=== PATIENT | female | born 1970 | race African-American/Black ===

== ENCOUNTER → 2016-05-14 | Outpatient (CLI) | payer OTHER ==
[2015-02-12 08:40] VITALS: BP 122/91
[~2016-05-14] MED LIST: ACYC200C PO; CYCL5TAB PO; IBUP-1060 PO; PHEN100C PO; TRIA1TAB3 PO
--- NOTE | 2016-05-20 21:56 | EEG ---
DATE OF SERVICE: 05/15/2016 OBJECTIVE: This is a 45-year-old female. She has a history of seizure or seizure-like episodes. EEG was requested to evaluate the seizure activity. METHODS: Twenty electrodes were applied according to the international 10-20 electrode placement system. EKG monitoring, hyperventilation, intermittent photic stimulation, monopolar and bipolar montages are routinely utilized. The record was obtained on a digital system with video monitoring. This is a long-term video EEG study with a total video monitoring EEG recording time of 24 hours from 05/14/2016 to 05/15/2016. FINDINGS: 1. BACKGROUND: The patient was recorded in the awake, drowsy, and sleep states. The overall background amplitude is 10-20 microvolts. A posterior dominant rhythm of 8 Hz is observed. 2. ABNORMALITIES: No specific epileptiform discharge or electrographic seizure is seen. No focal or diffuse slowing. Obvious muscle artifact noted. 3. ACTIVATION: Hyperventilation was not performed because the patient did not perform the technique. Intermittent photic stimulation was performed with photic driving. Sleep deprivation protocol also applied. No specific epileptiform discharge or electrographic seizure induced by intermittent photic stimulation or sleep deprivation. IMPRESSION: This is a long-term video EEG study with a total video monitoring and EEG recording time of 24 hours from 05/14/2016 to 05/15/2016. This long- term video EEG study is within the normal limits for the study of the awake, drowsy and sleep states. No focal, lateralizing, specific epileptiform discharge, or electrographic seizure is seen. TORI NGUYEN MD DR: TAWANDA/shoaib JOB#: [id number] / [id number] ELOISE
== END | disposition home or self-care (01) ==
LOC: SLPLAB 06:47
PROVIDERS: ATTEND Psychiatry & Neurology Neurology
DX: R56.9 Unspecified convulsions (principal)
CPT/HCPCS: 95951

== ENCOUNTER 2016-06-09 19:23 | Emergency (ER) | payer OTHER ==
[~2016-06-09] VITALS: Ht 160 cm; Wt 58.5 kg
[2016-06-09 20:06] VITALS: BP 120/79
--- NOTE | 2016-06-09 20:12 | PHYS DOC ---
Past Medical History Past Medical History: CHF, Hypertension, Seizure Past Surgical History: Other Additional Past Surgical Histo: unknown Alcohol Use: None Drug Use: Marijuana Adult General Chief Complaint Chief Complaint: EYE PROBLEMS HPI HPI Patient is a 45 year old female with complaint of right eye irritation after getting lice shampoo in her right eye within the past hour. She also has a complaint of possible rodent bites. Review of Systems Review of Systems Constitutional: Denies fever or chills [] Eyes: Denies change in visual acuity, redness, or eye pain [] HENT: Denies nasal congestion or sore throat [] Respiratory: Denies cough or shortness of breath [] Cardiovascular: No additional information not addressed in HPI [] GI: Denies abdominal pain, nausea, vomiting, bloody stools or diarrhea [] : Denies dysuria or hematuria [] Musculoskeletal: Denies back pain or joint pain [] Integument: Denies rash or skin lesions [] Neurologic: Denies headache, focal weakness or sensory changes [] Endocrine: Denies polyuria or polydipsia [] Allergies Allergies Allergies Coded Allergies Type Severity Reaction Last Updated Verified vancomycin Allergy Intermediate 12/10/14 ITCHING/HIVES from dose in ED Yes I S O L A T I O N *CONTACT* Allergy Unknown 12/18/14 Yes Penicillins Adverse Reaction Severe SEE COMMENT 12/11/14 Yes Sulfa (Sulfonamide Antibiotics) Adverse Reaction Severe see comment 12/11/14 Yes Physical Exam Physical Exam Constitutional: Well developed, well nourished, no acute distress, non-toxic appearance. [] HENT: Normocephalic, atraumatic, bilateral external ears normal, oropharynx moist, no oral exudates, nose normal. [] Eyes: PERRLA, EOMI, conjunctiva normal, no discharge. [] Neck: Normal range of motion, no tenderness, supple, no stridor. [] Cardiovascular:Heart rate regular rhythm, no murmur [] Lungs & Thorax: Bilateral breath sounds clear to auscultation [] Abdomen: Bowel sounds normal, soft, no tenderness, no masses, no pulsatile masses. [] Skin: Warm, dry, no erythema, no rash. [] Back: No tenderness, no CVA tenderness. [] Extremities: No tenderness, no cyanosis, no clubbing, ROM intact, no edema. [] Neurologic: Alert and oriented X 3, normal motor function, normal sensory function, no focal deficits noted. [] Psychologic: Affect normal, judgement normal, mood normal. [] Current Patient Data Vital Signs Vital Signs Date Time Temp Pulse Resp B/P Pulse Ox O2 Delivery O2 Flow Rate FiO2 06/09/16 20:06 97.9 85 18 99 Room Air 97.9 EKG EKG [] Radiology/Procedures Radiology/Procedures [] Course & Med Decision Making Course & Med Decision Making Patient would not cooperate with the exam. I asked her several times to allow me to open her eye and take a look. Patient refused to do so. Patient became very frustrated got up and walked out under her own accord. Dragon Disclaimer Dragon Disclaimer This electronic medical record was generated, in whole or in part, using a voice recognition dictation system. Departure Departure Impression: Primary Impression: Eye irritation Additional Impression: History of elopement from health care facility Referrals: ÁNGEL GRIMALDO (PCP) Problem Qualifiers VIMAL MILLS Jun 09, 2016 20:12
== END 2016-06-09 20:14 | disposition home or self-care (01) ==
LOC: ER 19:23
DX: H57.8 Other specified disorders of eye and adnexa (principal); I11.0 Hypertensive heart disease with heart failure; F12.10 Cannabis abuse, uncomplicated; Z88.0 Allergy status to penicillin; Z88.2 Allergy status to sulfonamides; Z88.1 Allergy status to other antibiotic agents; Z91.041 Radiographic dye allergy status
CPT/HCPCS: 99281

== ENCOUNTER 2016-06-27 11:51 | Emergency (ER) | payer OTHER ==
[~2016-06-27] VITALS: Ht 154.9 cm; Wt 60.3 kg
[2016-06-27] MEDS ORDERED: DIPHENHYDRAMINE HCL 25 MG CAPSULE PO ONE (13:15)
[2016-06-27 13:33] LABS: CREATININE 0.9 mg/dL (0.6-1.0); GFR 82.7; POTASSIUM 3.3 mmol/L (3.5-5.1)
--- NOTE | 2016-06-27 14:06 | RAD ---
Left lower extremity venous duplex study 06/27/2016 Clinical History: Left ankle redness and swelling. Technique: Using a combination of real time ultrasound imaging and color-flow and pulse Doppler imaging techniques along with graded compression and augmentation, duplex evaluation of the deep venous system of the left lower extremity was performed. Multiple images were obtained. Findings: There is no sonographic evidence of deep venous thrombosis involving the visualized deep venous structures of the left lower extremity. Impression: Negative study.
[2016-06-27] MEDS ORDERED: POTASSIUM CHLORIDE 20 MEQ/15 ML ORAL LIQUID. PO ONE (14:30)
[2016-06-27] MEDS ORDERED: CLIN-44 PO (14:34)
--- NOTE | 2016-06-27 14:35 | PHYS DOC ---
Past Medical History Past Medical History: CHF, Hypertension, Seizure Past Surgical History: Other Additional Past Surgical Histo: unknown Alcohol Use: None Drug Use: Marijuana Adult General Chief Complaint Chief Complaint: HYPERTENSION HPI HPI Patient is a 45 year old female who presents with leg swelling. The patient reports bilateral left greater than right lower extremity swelling for 2 days. Reports that left leg feels warm & appears red. Also reports right hand swelling, pain, & numbness in thumb & index finger. Reports history of hypertension with elevated blood pressure despite medication compliance. Denies fevers/chills, chest pain, shortness of breath, headache, extremity numbness/weakness except in hand as above. Reports history of CHF, denies history of DVT/PE. Review of Systems Review of Systems Constitutional: Denies fever or chills HENT: Denies nasal congestion or sore throat Respiratory: Denies cough or shortness of breath Cardiovascular: Denies chest pain , reports edema GI: Denies abdominal pain, nausea, vomiting, bloody stools or diarrhea Musculoskeletal: Reports bilateral lower extremity edema & skin changes to LLE Integument: skin changes to LLE Neurologic: Denies headache, focal weakness or sensory changes Current Medications Current Medications Current Medications Medications (Trade) Dose Ordered Sig/Zeeshan Start Time Stop Time Status Last Admin Dose Admin Diphenhydramine HCl (Benadryl) 25 mg 1X ONCE 06/27/16 13:15 06/27/16 13:16 DC 06/27/16 13:23 25 MG Potassium Chloride (KCl Oral Soln) 40 meq 1X ONCE 06/27/16 14:30 06/27/16 14:31 DC 06/27/16 14:50 40 MEQ Allergies Allergies Allergies Coded Allergies Type Severity Reaction Last Updated Verified vancomycin Allergy Intermediate 12/10/14 ITCHING/HIVES from dose in ED Yes I S O L A T I O N *CONTACT* Allergy Unknown 12/18/14 Yes Penicillins Adverse Reaction Severe SEE COMMENT 12/11/14 Yes Sulfa (Sulfonamide Antibiotics) Adverse Reaction Severe see comment 12/11/14 Yes Physical Exam Physical Exam Constitutional: Well developed, well nourished, no acute distress, non-toxic appearance. HENT: Normocephalic, atraumatic, bilateral external ears normal, oropharynx moist, nose normal. Eyes: conjunctiva normal, no discharge. Neck: supple, no stridor. Cardiovascular: RRR, no murmurs, no edema. Lungs & Thorax: LCTAB, no wheezing, no respiratory distress. Abdomen: soft, nontender, nondistended. Skin: L calf mild erythema & warmth. Back: No tenderness. Extremities: bilateral lower extremities appear symmetric with no appreciable edema, though left calf somewhat warm & slightly erythematous as compared to RLE , distal pulses palpable bilaterally, there is calf tenderness on the left RUE diminished sensation to thumb & index finger, wrist & hand nontender, normal ROM at wrist, radial pulse 2+, radial/median/ulnar nerve motor function intact. Neurologic: Alert and oriented X 3, no focal deficits noted. Psychologic: Affect normal, judgement normal, mood normal. Current Patient Data Vital Signs Vital Signs Date Time Temp Pulse Resp B/P Pulse Ox O2 Delivery O2 Flow Rate FiO2 06/27/16 15:45 88 16 144/94 98 Room Air 06/27/16 12:37 97.9 97.9 Lab Values Laboratory Tests Test 06/27/16 13:10 Sodium Level 142mmol/L (136-145) Potassium Level 3.3mmol/L (3.5-5.1) L Chloride Level 104mmol/L (98-107) Carbon Dioxide Level 29mmol/L (21-32) Anion Gap 9 (6-14) Blood Urea Nitrogen 20mg/dL (7-20) Creatinine 0.9mg/dL (0.6-1.0) Estimated GFR (Cockcroft-Gault) 82.7 Glucose Level 95mg/dL (70-99) Calcium Level 9.0mg/dL (8.5-10.1) [id number]-[id number]-Type Natriuretic Peptide 23pg/mL (0-124) Laboratory Tests 06/27/16 13:10 EKG EKG [] Radiology/Procedures Radiology/Procedures PROCEDURE: VENOUS LOWER EXTREMITY LEFT Left lower extremity venous duplex study 06/27/2016 Clinical History: Left ankle redness and swelling. Technique: Using a combination of real time ultrasound imaging and color-flow and pulse Doppler imaging techniques along with graded compression and augmentation, duplex evaluation of the deep venous system of the left lower extremity was performed. Multiple images were obtained. Findings: There is no sonographic evidence of deep venous thrombosis involving the visualized deep venous structures of the left lower extremity. Impression: Negative study. DICTATED and SIGNED BY: EMELYN DELAROSA MD DATE: 06/27/16 1401 [] Course & Med Decision Making Course & Med Decision Making Pertinent Labs and Imaging studies reviewed. (See chart for details) The patient presents with complaints as above. Blood pressure mildly elevated, recommend medication compliance & follow up with PCP in about 1 week for recheck. She has no evidence of DVT, but will give antibiotics for cellulitis of LLE. She has PCN & sulfa allergy, & doxycycline causes interaction with dilantin, so will give clindamycin. Upper extremity symptoms suggest carpal tunnel syndrome, given wrist splint for use particularly at night. Instructed to follow up with PCP for additional concerns. Come back for severe headache, chest pain, shortness of breath, spreading erythema/warmth/swelling of lower extremity, any otherwise condition. Discharged home in stable condition. [] Dragon Disclaimer Dragon Disclaimer This electronic medical record was generated, in whole or in part, using a voice recognition dictation system. Departure Departure Impression: Primary Impression: Cellulitis Additional Impressions: Carpal tunnel syndrome Essential hypertension Hypokalemia Disposition: 01 HOME, SELF-CARE Condition: STABLE Referrals: ÁNGEL BRANCH (PCP) Patient Instructions: Body Lice, FAQs, Carpal Tunnel Syndrome, [id number], Cellulitis, [id number] Additional Instructions: You were seen in the emergency department today. You don't have a blood clot. Please take the prescribed antibiotic for skin infection. You can wear the splint for comfort for carpal tunnel syndrome. Use nix shampoo to treat lice, take benadryl for itching. Remember to take blood pressure medication every day exactly as prescribed. Follow up with Dr. Branch in 2-3 days. Come back for high fever, spreading redness/warmth/swelling in your leg, any otherwise worsening condition. Scripts Clindamycin Hcl 150 Mg [id number] Mg PO TID #63 CAP Prov:ROBERT DESIR MD 06/27/16 Problem Qualifiers ROBERT DESIR MD Jun 27, 2016 14:35
[2016-06-27 15:45] VITALS: BP 144/94
== END 2016-06-27 15:50 | disposition home or self-care (01) ==
LOC: ER 11:51
DX: L03.116 Cellulitis of left lower limb (principal); G56.02 Carpal tunnel syndrome, left upper limb; E87.6 Hypokalemia; I11.0 Hypertensive heart disease with heart failure; I50.9 Heart failure, unspecified; F12.10 Cannabis abuse, uncomplicated; Z88.0 Allergy status to penicillin; Z88.2 Allergy status to sulfonamides; Z88.1 Allergy status to other antibiotic agents; Z91.041 Radiographic dye allergy status
CPT/HCPCS: 29125; 36415; 80048; 83880; 93971; 99285; Q0163

== ENCOUNTER 2016-07-01 18:11 | Emergency (ER) | payer OTHER ==
[~2016-07-01] VITALS: Ht 154.9 cm; Wt 59.9 kg
[~2016-07-01 18:11] MED LIST changes: +CLIN-44 PO
[2016-07-01 18:31] VITALS: BP 114/74
== END 2016-07-01 20:00 | disposition left against medical advice (07) ==
LOC: ER 18:11
DX: M79.89 Other specified soft tissue disorders (principal); Z53.21 Procedure and treatment not carried out due to patient leaving prior to being seen by health care provider

== ENCOUNTER 2016-08-12 11:33 | Emergency (ER) | payer OTHER ==
[~2016-08-12] VITALS: Ht 154.9 cm; Wt 57.2 kg
[2016-08-12 11:40] VITALS: BP 143/83
[2016-08-12 12:50] LABS: BILIRUBIN,URINE NEGATIVE (NEG); GLUCOSE,URINE NEGATIVE (NEG); NITRITE,URINE NEGATIVE (NEG); PROTEIN,URINE NEGATIVE (NEG-TRACE); UROBILINOGEN,URINE 0.2 mg/dL (0.2 mg/dL)
[2016-08-12 12:52] LABS: BACTERIA,URINE FEW /HPF (0-FEW); SQUAMOUS EPITHELIAL CELL,UR MANY /LPF
--- NOTE | 2016-08-12 12:57 | PHYS DOC ---
Past Medical History Past Medical History: CHF, Hypertension, Seizure, Other Additional Past Medical Histor: ECTOPIC PREG Past Surgical History: Tonsillectomy Additional Past Surgical Histo: right hand surgery, tubal surgery Alcohol Use: None Drug Use: Marijuana Adult General Chief Complaint Chief Complaint: FOREIGN BODY VAGINA HPI HPI Patient is a 45 year old female with history of CHF, seizures, hypertension, who presents with foreign body in the vagina. Patient states she believes she could have left a tampon in her vagina for 1-1/2 weeks. Patient states she is not sure about this. She says she got concerned a couple days ago when she started spotting brownish discharge. She states her cycles typically start at the beginning of the month. Today is August 12, 2016. She is not sure if she is on her cycles or not. She denies she could be though she states she has history of ectopic . She is not on any control. Review of Systems Review of Systems Constitutional: Denies fever or chills [] Eyes: Denies change in visual acuity, redness, or eye pain [] HENT: Denies nasal congestion or sore throat [] Respiratory: Denies cough or shortness of breath [] Cardiovascular: No additional information not addressed in HPI [] GI: Foreign body in the vagina : Denies dysuria or hematuria [] Musculoskeletal: Denies back pain or joint pain [] Integument: Denies rash or skin lesions [] Neurologic: Denies headache, focal weakness or sensory changes [] Endocrine: Denies polyuria or polydipsia [] Allergies Allergies Allergies Coded Allergies Type Severity Reaction Last Updated Verified vancomycin Allergy Intermediate 12/10/14 ITCHING/HIVES from dose in ED Yes I S O L A T I O N *CONTACT* Allergy Unknown 12/18/14 Yes Penicillins Adverse Reaction Severe SEE COMMENT 12/11/14 Yes Sulfa (Sulfonamide Antibiotics) Adverse Reaction Severe see comment 12/11/14 Yes Physical Exam Physical Exam Constitutional: Well developed, well nourished, no acute distress, non-toxic appearance. [] HENT: Normocephalic, atraumatic, bilateral external ears normal, oropharynx moist, no oral exudates, nose normal. [] Eyes: PERRLA, EOMI, conjunctiva normal, no discharge. [] Neck: Normal range of motion, no tenderness, supple, no stridor. [] Cardiovascular:Heart rate regular rhythm, no murmur [] Lungs & Thorax: Bilateral breath sounds clear to auscultation [] Abdomen: Bowel sounds normal, soft, no tenderness, no masses, no pulsatile masses. [] Pelvic exam External pelvic appears normal. There is no foreign object noted in the vaginal vault. Cervix is closed no CMT. Trace amount of brownish discharge consistent with spotting in the vaginal vault. No adnexal tenderness. No CMT. Skin: Warm, dry, no erythema, no rash. [] Back: No tenderness, no CVA tenderness. [] Extremities: No tenderness, no cyanosis, no clubbing, ROM intact, no edema. [] Neurologic: Alert and oriented X 3, normal motor function, normal sensory function, no focal deficits noted. [] Psychologic: Affect normal, judgement normal, mood normal. [] Current Patient Data Vital Signs Vital Signs Date Time Temp Pulse Resp B/P (MAP) Pulse Ox O2 Delivery O2 Flow Rate FiO2 08/12/16 11:40 97.8 86 18 99 Room Air 97.8 Lab Values Laboratory Tests Test 08/12/16 12:09 Urine Collection Type Unknown Urine Color Yellow Urine Clarity Clear Urine pH 6.0 Urine Specific [place] 1.020 Urine Protein Negative mg/dL (NEG-TRACE) Urine Glucose (UA) Negative mg/dL (NEG) Urine Ketones (Stick) Negative mg/dL (NEG) Urine Blood Moderate (NEG) Urine Nitrite Negative (NEG) Urine Bilirubin Negative (NEG) Urine Urobilinogen Dipstick 0.2 mg/dL (0.2 mg/dL) Urine Leukocyte Esterase Moderate (NEG) Urine RBC 6-10 /HPF (0-2) Urine WBC 5-10 /HPF (0-4) Urine Squamous Epithelial Cells Many /LPF Urine Bacteria Few /HPF (0-FEW) Urine Mucus Mod /LPF Microbiology 08/12/16 Wet Prep - Final, Complete EKG EKG [] Radiology/Procedures Radiology/Procedures [] Course & Med Decision Making Course & Med Decision Making Pertinent Labs and Imaging studies reviewed. (See chart for details) This is a 45-year-old female patient who presents to the ED concerned she could have left a tampon in her vagina. On pelvic exam there is no tampon in the vagina. She had some light spotting going on. Her cycle is supposed to start any time. Patient was reassured she does not have anything in her vagina. As soon as I finished the pelvic exam she walked away. She stated she is going outside to bring her partner in but never came back. Dragon Disclaimer Dragon Disclaimer This electronic medical record was generated, in whole or in part, using a voice recognition dictation system. Departure Departure Impression: Primary Impression: Foreign body in vagina Additional Impression: Spotting Disposition: 07 AGAINST MEDICAL ADVICE Condition: STABLE Referrals: ÁNGEL GRIMALDO (PCP) Problem Qualifiers Primary Impression: Foreign body in vagina Encounter type: initial encounter Qualified Codes: T19.2XXA - Foreign body in vulva and vagina, initial encounter ENDY YEUNG [employer] August 12, 2016 12:57
== END 2016-08-12 12:23 | disposition left against medical advice (07) ==
LOC: ER 11:33
DX: T19.2XXA Foreign body in vulva and vagina, initial encounter (principal); I11.0 Hypertensive heart disease with heart failure; I50.9 Heart failure, unspecified; F12.10 Cannabis abuse, uncomplicated; Y99.8 Other external cause status; Z97.5 Presence of (intrauterine) contraceptive device; Z88.0 Allergy status to penicillin; Z88.2 Allergy status to sulfonamides; Z91.041 Radiographic dye allergy status; X58.XXXA Exposure to other specified factors, initial encounter; Y93.89 Activity, other specified; Y92.89 Other specified places as the place of occurrence of the external cause
CPT/HCPCS: 81001; 81025; 87491; 87591; 99284; Q0111